=== PATIENT | female | born 2000 | race Caucasian/White ===

== ENCOUNTER 2018-06-05 12:01 | Outpatient (CLI) | payer MEDICAID, OTHER ==
[2018-06-05 12:39] LABS: #Basophils 0.1 thou/uL (0.0-0.2); #Eosinphils 0.2 thou/uL (0.0-0.7); #Lymphocytes 2.5 thou/uL (1.20-3.40); #Monocytes 0.9 thou/uL (0.11-0.59); #Neutrophils 5.3 thou/uL (1.40-6.50); %Basophils 0.6 % (0.0-1.0); %Eosinophils 2.4 % (0.0-10.0); Hemoglobin 14.3 g/dL (12.0-16.0); Mean Corpuscular HGB CONC 33.5 g/dL (32.0-36.0); Mean Corpuscular Hemoglobin 28.9 pg (25.0-35.0); Mean Corpuscular Volume 86.3 fL (78.0-98.0); Mean Platelet Volume 10.9 fL (7.4-10.4); Platelet Count 173 thou/uL (130-400); RBC Distribution Width 11.4 % (11.5-14.5); Red Blood Cell (RBC) Count 4.96 mill/uL (4.00-5.20)
[2018-06-05 13:01] LABS: BHCG - Serum Negative (NEGATIVE); Pregs Control Background? CLEAR/WHITE (CLR/WHITE); Pregs Control Bar Appear? YES (CONTROL BAR)
[2018-06-05 13:03] LABS: ALT (SGPT) 8 U/L (8-55); AST (SGOT) 11 U/L (5-30); Albumin 4.4 g/dL (3.5-5.0); Alkaline Phosphatase 56 U/L (40-150); Anion Gap 9 mmol/L (10-20); BUN (Urea Nitrogen) 6 mg/dL (8.4-21.0); Bilirubin, Direct 0.3 mg/dL (0.1-0.3); Bilirubin, Total 0.8 mg/dL (0.2-1.2); Calc. Creatinine Clearance 0 mL/min (70-130); Calcium 9.2 mg/dL (7.8-10.44); Carbon Dioxide 27 mmol/L (22-29); Chloride 106 mmol/L (98-107); Estimated GFR-MDRD 79; Glucose 82 mg/dL (70-105); Potassium 3.8 mmol/L (3.5-5.1); Protein, Total 7.2 g/dL (6.0-8.3); Sodium 138 mmol/L (136-145)
== END 2018-06-05 12:02 | disposition home or self-care (01) ==
LOC: LABBT 12:01
PROVIDERS: ATTEND Surgery
DX: Z01.812 Encounter for preprocedural laboratory examination (principal); K80.20 Calculus of gallbladder without cholecystitis without obstruction
CPT/HCPCS: 80048; 80076; 84703; 85025

== ENCOUNTER 2018-06-15 07:48 | Day surgery (SDC) | payer MEDICAID, OTHER ==
[2018-04-26 12:20] VITALS: BMI 22.3
[2018-06-15] MEDS ORDERED: CEFAZOLIN/Water 2 GM/20 ML SYRINGE ONE (08:37)
[2018-06-15] MEDS ORDERED: Bupivacaine/Epinephrine 0.25% 30 ML VIAL ONE (09:25)
[2018-06-15] MEDS ORDERED: Fentanyl 100 MCG/2 ML VIAL ONE ×2 (09:26→10:47)
[2018-06-15] MEDS ORDERED: Ketorolac Tromethamine 30 MG/ML VIAL ONE (10:35)
[2018-06-15] MEDS ORDERED: Meperidine HCl/PF 25 MG/ML VIAL ONE (10:35)
--- NOTE | 2018-06-15 11:24 | OP ---
DATE OF PROCEDURE: 06/15/2018. PREOPERATIVE DIAGNOSIS: Symptomatic gallstones. POSTOPERATIVE DIAGNOSIS: Symptomatic gallstones. PROCEDURE PERFORMED: Laparoscopic cholecystectomy. SURGEON: Dr. Templeton. ANESTHESIA: General. ESTIMATED BLOOD LOSS: Minimal. COMPLICATIONS: None. SPECIMEN: Gallbladder. FINDINGS: Chronic cholecystitis. PROCEDURE IN DETAIL: The patient was taken to the Operating Room and laid supine on the Operating Ro om table. After general anesthetic was obtained, the abdomen was prepped and draped in a sterile fas hion. A curved incision was made below the umbilicus. Cautery was used to dissect down to the umbil ical fascia. Umbilical fascia was incised and held up using a Porfirio. The abdominal cavity was ente red using a Merle clamp. Holding stitch of Vicryl was placed on each side of the fascia. Mortensen tro car was placed. High-flow pneumoperitoneum was obtained. An upper midline 5-mm port and two right u pper quadrant 5-mm ports were placed under direct camera visualization. The gallbladder was retracte d from the gallbladder fossa. The peritoneum of the gallbladder was opened anteriorly and posteriorl y. The critical view triangle was seen showing only the cystic duct and cystic artery branching from medial to lateral. There were no other branching structures. Two clips were placed proximally on t he cystic duct and one laterally. It was cut using laparoscopic scissors. The cystic artery was take n in the same way. Electrocautery was then used to dissect the gallbladder out of the gallbladder fos sa. The gallbladder was placed in an Endo catch bag and brought out through the Mortensen. There was n o bleeding or bile in the liver bed. The cystic duct stump and cystic artery stump were intact witho ut evidence of extravasation or bleeding. All port sites were infiltrated using local anesthesia. A ll ports were removed under camera visualization. Pneumoperitoneum was let down. The Vicryl was use d to close the fascial defect below the umbilicus. All incisions were irrigated and closed using 4-0 Monocryl and DermaBond. The patient was en route to Recovery in stable condition. All instrument c ounts, needle counts and lap counts were correct.
[2018-06-15] MEDS ORDERED: HYDROcodone/Acetaminophen 5/325 mg Tablet ONE (11:54)
[2018-06-15] MEDS ORDERED: Lidocaine 1% PF 5 ML VIAL ONE (13:14)
[2018-06-15] MEDS ORDERED: Ondansetron HCl/PF 4 MG/2 ML Vial ONE (13:14)
[2018-06-15] MEDS ORDERED: PROPOFOL 200 MG/20 ML VIAL ONE (13:14)
[2018-06-15] MEDS ORDERED: Glycopyrrolate 0.2 MG/ML 5 ML SYRINGE ONE (13:14)
[2018-06-15] MEDS ORDERED: Dexamethasone 20 MG/5 ML VIAL ONE (13:14)
== END 2018-06-15 12:20 | disposition home or self-care (01) ==
LOC: SDC 07:48
PROVIDERS: ATTEND Surgery
PROC: 0FT44ZZ Resection of Gallbladder, Percutaneous Endoscopic Approach (ICD-10-PCS; principal; 2018-06-15)
DX: K80.10 Calculus of gallbladder with chronic cholecystitis without obstruction (principal)
CPT/HCPCS: 88304; 96374; J1100; J1885; J2001; J2175; J2405; J2704; J3010

== ENCOUNTER 2019-02-13 19:40 | Day surgery (SDC) | payer SELFPAY ==
[2019-02-13 20:42] VITALS: BP 116/67; TEMP 97.9; BMI 24.7
[2019-02-13 21:17] LABS: Bilirubin Negative (Negative); Blood, Urine Negative (Negative); Clarity CLEAR (Clear); Glucose, Urine (Dipstick) Negative (Negative); Leukocyte Trace (Negative); Nitrite Negative (Negative); Protein, Urine (Dipstick) Negative (Neg-Trace); Specific Gravity, Urine 1.009 (1.002-1.036); Urobilinogen 0.2 mg/dL (0.2-1.0); pH, Urine 6.5 (5.0-9.0)
[2019-02-13 21:20] LABS: Bacteria/HPF None Seen HPF (None Seen); Hyaline Casts/LPF 0-3 HYALINE CAST LPF (0-3 Hyaline); RBC/HPF 0-3 HPF (0-3); Squamous Epithelial 0-3 HPF (0-3); WBC/HPF 0-3 HPF (0-3)
--- NOTE | 2019-02-13 22:50 | HP ---
PRIMARY OB: Bernabe Scott MD. CHIEF COMPLAINT: Uterine contraction. HISTORY OF PRESENT ILLNESS: The patient is a 18-year-old G2, P1 female with an intrauterine at 24 weeks and 6 days, who presented to Labor and Delivery after experiencing a contraction today about 6 p.m. The patient felt one yesterday evening as well and made her worried about the health of the baby. The patient also reports that she has frequent urinary tract infections and was last treated about a month ago. The patient denies any recent illness, fever, fall, headache, chest pain, shortness of breath, nausea, vomiting, diarrhea, constipation, hip problems, knee problems, muscle weakness, any new rashes, bleeding, change in discharge, leakage of fluid, urinary urgency or frequency. PAST MEDICAL HISTORY: Negative. PAST SURGICAL HISTORY: Cholecystectomy, last June. SOCIAL HISTORY: Denies drug, alcohol, or tobacco use. ALLERGIES: NO KNOWN DRUG ALLERGIES. MEDICATIONS: vitamins. OB LABS: Unavailable at time of dictation. REVIEW OF SYSTEMS: Per HPI. PHYSICAL EXAMINATION: VITAL SIGNS: Blood pressure 116/67, heart rate of 87, respiratory rate 18, temperature 97.9. GENERAL: She appears to be in no acute distress. She is alert, oriented, cooperative, and pleasant to interact with. HEAD: Normocephalic, atraumatic. LUNGS: Clear to auscultation bilaterally. HEART: Has regular rate and rhythm. ABDOMEN: Gravid, soft, nontender to palpation. She has some slight tenderness to palpation in her SI joint on the right. EXTREMITIES: Nontender, nonedematous. : Exam has been deferred. IMAGING STUDIES: heart tracing shows the fetus with a baseline in the 150s and moderate long-term variability, appropriate for a 24-week gestation. Tocometer showing no evidence of contractions. LABORATORY DATA: Urinalysis is negative for protein, negative for ketones, negative for nitrites. She has trace leukocyte esterase. No white blood cells, no squamous cells, no bacteria. ASSESSMENT AND PLAN: The patient is a 18-year-old, G2, P1 female with an intrauterine at 24 weeks and 6 days who has no evidence of labor at this time or evidence of urinary tract infection. The patient is comfortable, has not been having any contractions since 6 o'clock and has been given instructions to follow up with her primary OB as scheduled. Job ID: [id number]
== END 2019-02-13 21:30 | disposition home or self-care (01) ==
LOC: L&D/OP 19:40
PROVIDERS: ATTEND Family Medicine
DX: O47.02 False labor before 37 completed weeks of gestation, second trimester (principal); Z3A.24 24 weeks gestation of pregnancy
CPT/HCPCS: 81001; 99283

== ENCOUNTER 2019-05-17 09:45 | Inpatient (IN) | payer OTHER ==
[2019-05-17] MEDS ORDERED: NS / Oxytocin 40 units/1000ml 1,000 ML IV PRN (09:51)
[2019-05-17] MEDS ORDERED: Docusate 100 MG CAP PO PRN (09:51)
[2019-05-17] MEDS ORDERED: HYDROcodone/Acetaminophen 5/325 mg Tablet PO PRN ×2 (09:51)
[2019-05-17] MEDS ORDERED: Lidocaine 1% (PF) 30 ML VIAL SC PRN (09:51)
[2019-05-17] MEDS ORDERED: Promethazine HCl 25 MG/ML VIAL IM PRN (09:51)
[2019-05-17] MEDS ORDERED: Ondansetron PF 4 MG/2 ML Vial IVP PRN ×2 (09:51→14:01)
[2019-05-17] MEDS ORDERED: Butorphanol Tartrate 1 MG/ML VIAL SLOW IVP PRN (09:51)
[2019-05-17] MEDS ORDERED: Ibuprofen 800 MG TAB PO PRN (09:51)
[2019-05-17] MEDS ORDERED: Misoprostol 200 MCG TAB PR PRN (09:51)
[2019-05-17] MEDS ORDERED: hydrALAZINE 20 MG/ML VIAL SLOW IVP PRN ×2 (09:51→14:01)
[2019-05-17] MEDS ORDERED: Acetaminophen/Codeine 30-300mg Tablet PO PRN ×4 (09:51→14:01)
[2019-05-17] MEDS ORDERED: Acetaminophen 500 MG TAB PO PRN (09:51)
[2019-05-17] MEDS ORDERED: Diphenoxylate HCl/Atropine Tablet PO PRN ×2 (09:51)
[2019-05-17] MEDS ORDERED: Lactated Ringer's 1,000 ML IV SCH (10:00)
[2019-05-17 10:24] VITALS: BMI 30.9
[2019-05-17 11:12] LABS: Hemoglobin 14.2 g/dL (12.0-16.0); Mean Corpuscular HGB CONC 35.2 g/dL (32.0-36.0); Mean Corpuscular Volume 88.1 fL (78.0-98.0); Mean Platelet Volume 11.7 fL (7.4-10.4); Platelet Count 91 thou/uL (130-400); Red Blood Cell (RBC) Count 4.57 mill/uL (4.00-5.20); White Blood Cell (WBC) Count 13.6 thou/uL (4.8-10.8)
[2019-05-17] MEDS ORDERED: NS w/ Oxytocin 10 units 500 ML IV SCH ×2 (11:15)
[2019-05-17 11:20] LABS: HBSAg Index 0.16 S/CO (0-0.99); Hep B Surf Ag Non-Reactive S/CO (NonReactive); Syphilis Antibody Nonreactive (Nonreactive); Syphilis Antibody Index 0.05 S/CO (<1.00 Non-Reactive)
[2019-05-17] MEDS: NS / Oxytocin 40 units/1000ml 1,000 ML IV SCH ×2 (13:55→15:05)
[2019-05-17] MEDS ORDERED: Milk Of Magnesia 30 ML UDCUP PO PRN (14:01)
[2019-05-17] MEDS ORDERED: Bisacodyl 10 MG SUPP PR PRN (14:01)
[2019-05-17] MEDS ORDERED: Preparation H Ointment 28 GM TUBE PR PRN (14:01)
[2019-05-17] MEDS ORDERED: Adacel (T-DAP) 0.5 ML SYRINGE IM ONE (14:01)
[2019-05-17] MEDS ORDERED: Misoprostol 200 MCG TAB VAG PRN (14:01)
[2019-05-17] MEDS ORDERED: diphenhydrAMINE 25 MG CAP PO PRN (14:01)
[2019-05-17] MEDS ORDERED: Benzocaine-Menthol 82.5 ML CAN TOP PRN (14:01)
[2019-05-17] MEDS ORDERED: Lanolin Ointment 7 GM TUBE TOP PRN (14:01)
[2019-05-17] MEDS ORDERED: Zolpidem Tartrate 5 MG TAB PO PRN (14:01)
[2019-05-17] MEDS: Ferrous Sulfate 325 MG TAB PO SCH (17:47)
[2019-05-17] MEDS: Ibuprofen 800 MG TAB PO SCH (21:27)
[2019-05-17] MEDS: Docusate Calcium (SURFAK) 240 MG CAP PO SCH (21:27)
[2019-05-18 01:55] VITALS: BP 108/57; TEMP 98.3
[2019-05-18] MEDS: Ibuprofen 800 MG TAB PO SCH ×2 (06:20→09:15)
[2019-05-18] MEDS ORDERED: Prenatal Vitamin 1 TAB PO SCH (09:00)
[2019-05-18] MEDS: Docusate Calcium (SURFAK) 240 MG CAP PO SCH (09:16)
[2019-05-18] MEDS: Ferrous Sulfate 325 MG TAB PO SCH (09:25)
== END 2019-05-18 15:55 | disposition home or self-care (01) | DRG 807 ==
LOC: L&D 09:45 → 3SW 16:42
PROVIDERS: ADMIT Obstetrics & Gynecology; ATTEND Obstetrics & Gynecology
PROC: 10E0XZZ Delivery of Products of Conception, External Approach (ICD-10-PCS; principal; 2019-05-17)
PROC: 3E033VJ Introduction of Other Hormone into Peripheral Vein, Percutaneous Approach (ICD-10-PCS; 2019-05-17)
DX: O80 Encounter for full-term uncomplicated delivery (principal); Z37.0 Single live birth; Z3A.38 38 weeks gestation of pregnancy
CPT/HCPCS: 36415; 85027; 86780; 86850; 86900; 86901; 87340; J0595; J2001; J2590

== ENCOUNTER 2021-11-04 16:46 | Inpatient (IN) | payer OTHER ==
[2021-11-04] MEDS ORDERED: Ketorolac Tromethamine 30 MG/ML VIAL ONE (17:31)
[2021-11-04] MEDS ORDERED: Ondansetron PF 4 MG/2 ML Vial ONE (17:31)
[2021-11-04 17:39] LABS: #Lymphocytes 1.5 thou/uL (1.20-3.40); #Monocytes 0.3 thou/uL (0.11-0.59); #Neutrophils 12.1 thou/uL (1.40-6.50); %Basophils 0.2 % (0.0-1.0); %Eosinophils 0.1 % (0.0-10.0); %Lymphocytes 10.8 % (21.0-51.0); %Monocytes 2.3 % (0.0-10.0); %Neutrophils 86.6 % (42.0-75.0); Mean Corpuscular HGB CONC 33.5 g/dL (32.0-36.0); Mean Corpuscular Hemoglobin 28.1 pg (27.0-31.0); Mean Corpuscular Volume 83.9 fL (78.0-98.0); Mean Platelet Volume 10.4 fL (7.4-10.4); Platelet Count 190 thou/uL (130-400); Red Blood Cell (RBC) Count 5.34 mill/uL (4.20-5.40)
[2021-11-04 17:43] LABS: BHCG - Serum Negative (NEGATIVE); Pregs Control Background? CLEAR/WHITE (CLR/WHITE); Pregs Control Bar Appear? YES (CONTROL BAR)
[2021-11-04 18:06] LABS: ALT (SGPT) 16 U/L (8-55); AST (SGOT) 18 U/L (5-34); Albumin 4.7 g/dL (3.5-5.0); Alkaline Phosphatase 64 U/L (40-110); Anion Gap 13 mmol/L (10-20); BUN (Urea Nitrogen) 15 mg/dL (7.0-18.7); Bilirubin, Total 0.8 mg/dL (0.2-1.2); Calc. Creatinine Clearance 0 mL/min (70-130); Carbon Dioxide 24 mmol/L (22-29); Chloride 107 mmol/L (98-107); Glucose 109 mg/dL (70-105); Potassium 4.6 mmol/L (3.5-5.1); Protein, Total 7.7 g/dL (6.0-8.3); Sodium 139 mmol/L (136-145)
[2021-11-04] MEDS ORDERED: hydrALAZINE 20 MG/ML VIAL SLOW IVP PRN (19:43)
[2021-11-04] MEDS ORDERED: Ketorolac Tromethamine 30 MG/ML VIAL IVP PRN (19:44)
[2021-11-04] MEDS ORDERED: Ondansetron PF 4 MG/2 ML Vial IVP PRN (19:44)
[2021-11-04] MEDS ORDERED: Bisacodyl 10 MG SUPP PR PRN (19:45)
[2021-11-04] MEDS: Sodium Chloride 0.9% 1,000 ML IV SCH (20:45)
[2021-11-04] MEDS: Ampicillin/Sulbactam 3 GM in Sodium Chloride 0.9% 100 ML IVPB SCH (20:45)
[2021-11-04 20:46] VITALS: BMI 30.9
[2021-11-04] MEDS ORDERED: Famotidine/PF 20 mg/2ml Vial SLOW IVP SCH (21:00)
[2021-11-05 03:39] LABS: SARS-CoV-2 NAA Rapid Test Not Detected (NotDetected)
[2021-11-05] MEDS: Ampicillin/Sulbactam 3 GM in Sodium Chloride 0.9% 100 ML IVPB SCH (03:40)
[2021-11-05] MEDS: Sodium Chloride 0.9% 1,000 ML IV SCH ×3 (03:41→19:43)
[2021-11-05 05:49] LABS: #Eosinphils 0.1 thou/uL (0.0-0.7); #Lymphocytes 3.3 thou/uL (1.20-3.40); #Monocytes 0.9 thou/uL (0.11-0.59); #Neutrophils 6.5 thou/uL (1.40-6.50); %Basophils 0.4 % (0.0-1.0); %Eosinophils 0.7 % (0.0-10.0); %Lymphocytes 30.6 % (21.0-51.0); %Monocytes 8.4 % (0.0-10.0); Hemoglobin 13.4 g/dL (12.0-16.0); Mean Corpuscular HGB CONC 34.9 g/dL (32.0-36.0); Mean Corpuscular Hemoglobin 29.7 pg (27.0-31.0); Mean Corpuscular Volume 85.2 fL (78.0-98.0); Mean Platelet Volume 10.5 fL (7.4-10.4); Platelet Count 165 thou/uL (130-400); RBC Distribution Width 11.9 % (11.5-14.5); White Blood Cell (WBC) Count 10.9 thou/uL (4.8-10.8)
[2021-11-05 06:17] LABS: Anion Gap 12 mmol/L (10-20); BUN (Urea Nitrogen) 16 mg/dL (7.0-18.7); Calc. Creatinine Clearance 145 mL/min (70-130); Calcium 8.7 mg/dL (7.8-10.44); Carbon Dioxide 21 mmol/L (22-29); Chloride 111 mmol/L (98-107); Glucose 72 mg/dL (70-105); Potassium 3.9 mmol/L (3.5-5.1); Sodium 140 mmol/L (136-145)
[2021-11-05] MEDS: Pantoprazole 40 MG VIAL IVP SCH (08:42)
[2021-11-05] MEDS ORDERED: FLU VACC QS2021-22(6MOS UP)/PF 60 MCG/0.5 ML SYRINGE IM ONE (09:00)
[2021-11-05] MEDS ORDERED: Ketamine 50 MG/ML (10ML VIAL) ONE (09:55)
[2021-11-05] MEDS ORDERED: PROPOFOL 200 MG/20 ML VIAL ONE (10:02)
[2021-11-05] MEDS ORDERED: Promethazine HCl 25 MG/ML VIAL IM PRN (10:37)
[2021-11-05] MEDS ORDERED: Promethazine HCl 25 MG/ML VIAL IVPB PRN (10:37)
[2021-11-05] MEDS ORDERED: Ondansetron HCl/PF 4 MG/2 ML Vial IVP PRN (10:37)
[2021-11-05 19:42] VITALS: TEMP 97.7
[2021-11-06] MEDS: Sodium Chloride 0.9% 1,000 ML IV SCH ×2 (02:57→11:53)
[2021-11-06 06:43] LABS: #Eosinphils 0.1 thou/uL (0.0-0.7); #Lymphocytes 2.1 thou/uL (1.20-3.40); #Monocytes 0.6 thou/uL (0.11-0.59); %Basophils 0.5 % (0.0-1.0); %Eosinophils 1.4 % (0.0-10.0); %Lymphocytes 21.5 % (21.0-51.0); %Monocytes 6.2 % (0.0-10.0); %Neutrophils 70.6 % (42.0-75.0); Hemoglobin 13.3 g/dL (12.0-16.0); Mean Corpuscular HGB CONC 33.7 g/dL (32.0-36.0); Mean Corpuscular Hemoglobin 29.1 pg (27.0-31.0); Mean Corpuscular Volume 86.4 fL (78.0-98.0); Mean Platelet Volume 10.3 fL (7.4-10.4); Platelet Count 145 thou/uL (130-400); RBC Distribution Width 11.8 % (11.5-14.5); Red Blood Cell (RBC) Count 4.57 mill/uL (4.20-5.40)
[2021-11-06 07:01] LABS: Anion Gap 14 mmol/L (10-20); BUN (Urea Nitrogen) 10 mg/dL (7.0-18.7); Calc. Creatinine Clearance 182 mL/min (70-130); Calcium 8.5 mg/dL (7.8-10.44); Carbon Dioxide 17 mmol/L (22-29); Chloride 111 mmol/L (98-107); Glucose 62 mg/dL (70-105); Potassium 4.3 mmol/L (3.5-5.1); Sodium 138 mmol/L (136-145)
[2021-11-06 07:36] VITALS: BP 116/73
[2021-11-06] MEDS: Pantoprazole 40 MG VIAL IVP SCH (08:43)
== END 2021-11-06 14:10 | disposition home or self-care (01) | DRG 392 ==
LOC: ERS 16:46 → T4-B 19:18 → OBSVTOIN 11-05 16:50
PROVIDERS: ADMIT Internal Medicine; ATTEND Internal Medicine
PROC: 3E03329 Introduction of Other Anti-infective into Peripheral Vein, Percutaneous Approach (ICD-10-PCS; 2021-11-04)
PROC: 0D758ZZ Dilation of Esophagus, Via Natural or Artificial Opening Endoscopic (ICD-10-PCS; principal; 2021-11-05)
DX: K20.0 Eosinophilic esophagitis (principal); F45.8 Other somatoform disorders; K21.9 Gastro-esophageal reflux disease without esophagitis; D72.829 Elevated white blood cell count, unspecified; K59.00 Constipation, unspecified; R13.12 Dysphagia, oropharyngeal phase; Z90.49 Acquired absence of other specified parts of digestive tract; Z98.890 Other specified postprocedural states
CPT/HCPCS: 36415; 74230; 80048; 80053; 83735; 84703; 85025; 88305; 96374; 96375; 96376; C9113; G0378; J0295; J1885; J2405; J2704; J3490; J7050; S0028; U0002; U0003; U0005